=== PATIENT | female | born 1930 | race Caucasian/White ===

== ENCOUNTER 2016-08-25 11:08 | Emergency (ER) | payer MEDICARE ==
[2016-08-25 11:25] VITALS: BP 142/57
--- NOTE | 2016-08-25 12:20 | UC ---
Skin Complaint HPI - HPI Summary HPI Summary: nicked left lower leg with a razor this morning---has had continued oozing from the site - History of Current Complaint Chief Complaint: UCSkin Time Seen by Provider: 08/25/16 12:08 Stated Complaint: LEFT MARTINEZ LACERATION Hx Obtained From: Patient ?: No Onset/Duration: Sudden Onset, Lasting Hours - happened 2 hours ago, Still Present Timing: Constant Current Severity: None Pain Intensity: 0 Location: Discrete - left lower anterior leg Aggravating: Nothing Alleviating: Other - direct pressure Associated Signs & Symptoms: Positive: Negative Related History: Trauma - Allergy/Home Medications Allergies/Adverse Reactions: Allergies Allergy/AdvReac Type Severity Reaction Status Date / Time Penicillins [PCN] Allergy Unknown Verified 08/25/16 11:26 Reaction Details Sulfa Antibiotics Allergy Unknown Verified 08/25/16 11:26 Reaction Details Codeine AdvReac Nausea Verified 08/25/16 11:25 Home Medications: Home Medications Acetaminophen [Acetaminophen Extra Stren] 500 mg PO ONCE PRN 08/25/16 [History Confirmed 08/25/16] Review of Systems Constitutional: Negative Skin: Other - nicked left anterior lower leg with a razor this morning has had continued oozing from the site Eyes: Negative ENT: Negative Respiratory: Negative Cardiovascular: Negative Gastrointestinal: Negative Genitourinary: Negative Motor: Negative Neurovascular: Negative Musculoskeletal: Negative Neurological: Negative Psychological: Negative All Other Systems Reviewed And Are Negative: Yes PMH/Surg Hx/FS Hx/Imm Hx Previously Healthy: Yes - Surgical History Surgical History: Yes Surgery Procedure, Year, and Place: hysterectomy. gallbladder - Family History Known Family History: Positive: None Family History: denies cardio vascular or clotting/bleeding issues in fakmily lineage - Social History Occupation: Retired Lives: With Family Alcohol Use: Occasionally Substance Use Type: None Smoking Status (MU): Never Smoked Tobacco Physical Exam Triage Information Reviewed: Yes Appearance: Well-Appearing, No Pain Distress, Well-Nourished Vital Signs: Initial Vital Signs Temp 97.3 F 08/25/16 11:16 Pulse 75 08/25/16 11:16 Resp 14 08/25/16 11:16 BP 142/57 08/25/16 11:16 Pulse Ox 98 08/25/16 11:16 Vital Signs Reviewed: Yes Eye Exam: Normal Eyes: Positive: Conjunctiva Clear ENT Exam: Normal ENT: Positive: Normal ENT inspection, Hearing grossly normal. Negative: Nasal congestion, Nasal drainage, Trismus, Muffled/hoarse voice Dental Exam: Normal Neck exam: Normal Neck: Positive: Supple, Nontender, No Lymphadenopathy Respiratory Exam: Normal Respiratory: Positive: Chest non-tender, Lungs clear, Normal breath sounds, No respiratory distress, No accessory muscle use Cardiovascular Exam: Normal Cardiovascular: Positive: RRR, No Murmur, Pulses Normal, Brisk Capillary Refill Musculoskeletal Exam: Normal Musculoskeletal: Positive: Strength Intact, ROM Intact, No Edema Neurological Exam: Normal Neurological: Positive: Alert, Muscle Tone Normal Psychological Exam: Normal Psychological: Positive: Normal Response To Family Skin: Positive: Other - silvia on anterior left lower leg Laceration Repair - Laceration Repair 1 Description: Irregular Laceration Size After Repair: Length (cm) - 0.1, Width (mm) - 1, Depth (mm) - 1 Modified For Repair: No Cleansing Completed Via Routine Prep: Yes Irrigation With Pressure Irrigation Device: Yes Re-Evaluation - Re-Evaluation First Eval Change: Improved - surgicell and pressure dressing applied with good relief of bleeding--n/m/c intact after dressing application,additional dressing supplies provided to family Course/Dx - Course Course Of Treatment: keep dressing on for 24 hours, follow BP with PCP - Differential Diagnoses - Skin Complaint Differential Diagnoses: Impetigo, Local Allergic Reaction, Other - small skin avulsion left lower extremity - Diagnoses Provider Diagnoses: hypertension with out previous dx, skin avulsion left lower leg Discharge - Discharge Plan Condition: Stable Disposition: HOME Patient Education Materials: Skin Avulsion (ED), DASH Eating Plan (ED), Hypertension (ED) Referrals: KYRA Baker [Primary Care Provider] - 1 Week
== END 2016-08-25 12:28 | disposition home or self-care (01) ==
LOC: UCCORT 11:08
DX: S81.812A Laceration without foreign body, left lower leg, initial encounter (principal); W45.8XXA Other foreign body or object entering through skin, initial encounter; Y93.9 Activity, unspecified; Y92.9 Unspecified place or not applicable; I10 Essential (primary) hypertension; Z90.49 Acquired absence of other specified parts of digestive tract; Z90.710 Acquired absence of both cervix and uterus
CPT/HCPCS: 99211; G0463

== ENCOUNTER 2017-06-08 12:10 | Emergency (ER) | payer MEDICARE ==
[2017-06-08 14:53] VITALS: BP 126/69
--- NOTE | 2017-06-08 15:12 | UC ---
Shoulder Pain HPI - HPI Summary HPI Summary: Pt. woke up with right shoulder pain. has pain in the front of shoulder and shoots to the elbow. patient is moving the arm without difficulty. there is no brusing or deformity - History of Current Complaint Chief Complaint: UCUpperExtremity Stated Complaint: RT ARM PAIN Time Seen by Provider: 06/08/17 14:58 Hx Obtained From: Patient ?: No Onset/Duration: Sudden Onset, Lasting Hours Timing: Intermittent Episode Lasting Severity Initially: Severe Severity Currently: Severe Location Of Pain: Is Discrete @ - front of shoulder Pain Intensity: 8 Character: Sharp Aggravating Factor(s): Movement, Lifting, Flexion - Allergies/Home Medications Allergies/Adverse Reactions: Allergies Allergy/AdvReac Type Severity Reaction Status Date / Time codeine Allergy Nausea Verified 06/08/17 14:47 Penicillins Allergy Unknown Verified 06/08/17 14:47 Reaction Details Sulfa (Sulfonamide Allergy Unknown Verified 06/08/17 14:47 Antibiotics) Reaction Details PMH/Surg Hx/FS Hx/Imm Hx Previously Healthy: Yes - Surgical History Surgical History: Yes Surgery Procedure, Year, and Place: hysterectomy. gallbladder - Family History Known Family History: Positive: None Family History: denies cardio vascular or clotting/bleeding issues in fakm[place] lineage - Social History Alcohol Use: Weekly Substance Use Type: None Smoking Status (MU): Never Smoked Tobacco Review of Systems Constitutional: Negative Skin: Negative Eyes: Negative ENT: Negative Respiratory: Negative Cardiovascular: Negative Gastrointestinal: Negative Genitourinary: Negative Motor: Negative Neurovascular: Negative Musculoskeletal: Arthralgia, Myalgia Neurological: Negative Psychological: Negative Is Patient Immunocompromised?: No All Other Systems Reviewed And Are Negative: Yes Physical Exam Triage Information Reviewed: Yes Appearance: Well-Appearing, Well-Nourished, Pain Distress Vital Signs: Initial Vital Signs Temp 98.4 F 06/08/17 14:47 Pulse 83 06/08/17 14:47 Resp 16 06/08/17 14:47 BP 126/69 06/08/17 14:47 Pulse Ox 97 06/08/17 14:47 Vital Signs Reviewed: Yes Eye Exam: Normal ENT Exam: Normal Dental Exam: Normal Neck exam: Normal Respiratory Exam: Normal Respiratory: Positive: Chest non-tender, Lungs clear, Normal breath sounds Cardiovascular Exam: Normal Cardiovascular: Positive: RRR, No Murmur, Pulses Normal Abdominal Exam: Normal Abdomen Description: Positive: Nontender, No Organomegaly, Soft Bowel Sounds: Positive: Present Musculoskeletal: Positive: Strength Intact, ROM Intact, Edema @, Other: - pain with elbow felexion in the bicep muscle, pain in bicep tendon groove of the shoulder with INT and EXT rotation, there is no brusing or deformity of the joint, she is moving the arm while talking, pushes herslf out of the chair without difficulty or pain, able to lift arms abover her head as well. Psychological Exam: Normal Shoulder Course/Dx - Course Course Of Treatment: hs obtained, exam performed ,meds reviewed, ROM assessed. sling provided for arm rest, - Differential Dx/Diagnosis Differential Diagnosis/HQI/PQRI: Arthritis, Bursitis, Contusion, Dislocation, Sprain, Strain Provider Diagnoses: muscle strain of right bicep Discharge - Discharge Plan Condition: Stable Disposition: HOME Patient Education Materials: Muscle Strain (ED) Referrals: KYRA Baker [Primary Care Provider] - Additional Instructions: 1. use heating pad to warm the arm, 2. tylenol as needed for pain 3. no heavy lifting until pain subsides, try not to sleep in the right side. 4. If no improvement in the next week follow up with your doctor.
== END 2017-06-08 15:22 | disposition home or self-care (01) ==
LOC: UCCORT 12:10
DX: S46.211A Strain of muscle, fascia and tendon of other parts of biceps, right arm, initial encounter (principal); X58.XXXA Exposure to other specified factors, initial encounter; Y93.9 Activity, unspecified; Y92.9 Unspecified place or not applicable
CPT/HCPCS: 99212; G0463

== ENCOUNTER 2018-03-18 14:39 | Emergency (ER) | payer MEDICARE ==
[2018-03-18 14:49] VITALS: BP 159/73
--- NOTE | 2018-03-18 15:11 | UC ---
General HPI - HPI Summary HPI Summary: pt was pushing her cart and ran it into a box on the floor causing her to fall. pt fell backwards and hit the back of her head on the floor. she denies any LOC , MARIE, neck pain, n/v. pt and son note aside from the back of her head being sore she is fine. no laceration and no use of blood thinners. occured just ship's captain. - History of Current Complaint Chief Complaint: UCHeadInjury Stated Complaint: HEAD INJURY S/P FALL Time Seen by Provider: 03/18/18 15:03 Hx Obtained From: Patient, Family/Coil Builder - son Hx Last Menstrual Period: N/A Onset/Duration: Sudden Onset Pain Intensity: 9 Associated Signs & Symptoms: Negative: Dizziness, Headache, Nausea, Vomiting, Weakness - Allergy/Home Medications Allergies/Adverse Reactions: Allergies Allergy/AdvReac Type Severity Reaction Status Date / Time codeine Allergy Nausea Verified 03/18/18 14:48 Penicillins Allergy Unknown Verified 03/18/18 14:48 Reaction Details Sulfa (Sulfonamide Allergy Unknown Verified 03/18/18 14:48 Antibiotics) Reaction Details Home Medications: Home Medications Losartan TAB* [Cozaar TAB*] 50 mg PO BEDTIME 03/18/18 [History Confirmed ] PMH/Surg Hx/FS Hx/Imm Hx Cardiovascular History: Hypertension - Surgical History Surgical History: Yes Surgery Procedure, Year, and Place: hysterectomy. gallbladder - Family History Known Family History: Positive: None Family History: denies cardio vascular or clotting/bleeding issues in f[place] lineage - Social History Occupation: Retired Alcohol Use: Weekly Substance Use Type: None Smoking Status (MU): Never Smoked Tobacco - Immunization History Vaccination Up to Date: Yes Review of Systems All Other Systems Reviewed And Are Negative: Yes Constitutional: Positive: Negative Skin: Positive: Negative Eyes: Positive: Negative ENT: Positive: Negative Respiratory: Positive: Negative Cardiovascular: Positive: Negative Gastrointestinal: Positive: Negative Genitourinary: Positive: Negative Motor: Positive: Negative Neurovascular: Positive: Negative Musculoskeletal: Positive: Other: - pain to back of head Neurological: Positive: Negative Psychological: Positive: Negative Is Patient Immunocompromised?: No Physical Exam Triage Information Reviewed: Yes Appearance: Well-Appearing Vital Signs: Initial Vital Signs Temp 97.2 F 03/18/18 14:44 Pulse 85 03/18/18 14:44 Resp 19 03/18/18 14:44 BP 159/73 03/18/18 14:44 Pulse Ox 100 03/18/18 14:44 Vital Signs Reviewed: Yes Eyes: Positive: Conjunctiva Clear, Other: - PERRL, EOMI. ENT: Positive: Pharynx normal, TMs normal, Other - hearing aide returned to L ear. Negative: Nasal congestion, Nasal drainage Neck: Positive: Supple, Nontender, No Lymphadenopathy, Other: - c-spine non tender and no deformity. Respiratory: Positive: Chest non-tender, Lungs clear, Normal breath sounds Cardiovascular: Positive: RRR, No Murmur Abdomen Description: Positive: Nontender, No Organomegaly, Soft Bowel Sounds: Positive: Present Musculoskeletal: Positive: Other: - Head: mild swelling and brusing with tenderness to upper occipital area. No break in skin or step off/instability. thoracic and lumbar spine are non tender. rom intact per baseline. extremities atraumatic. Neurological: Positive: Other: - a&o x3. cn 2-12 grossly intact. 5/5 strenght, 1 + reflexes x4. superficial sensation intact x4. slow steady gait which is normal for pt Psychological: Positive: Age Appropriate Behavior Skin Exam: Normal Diagnostics - Radiology No standard instances Radiology Interpretation Completed By: Radiologist - CT Brain=IMPRESSION: 1. NO EVIDENCE FOR ACUTE INTRACRANIAL ABNORMALITY. 2. SMALL HEMATOMA IN THE SCALP ADJACENT TO THE POSTERIOR LEFT PARIETAL BONE. 3. ATROPHY AND MODERATE TO SEVERE CHRONIC SMALL VESSEL ISCHEMIC CHANGES. Course/Dx - Course Course Of Treatment: EXAM IS REASSURING. CT UNREMARKABLE. NEED FOR CLOSE F/U AND RECHECK STRESSED WELL GO TO ER FOR ANY CHANGES/WORSENING. - Diagnoses Provider Diagnosis: Head injury, Scalp contusion Discharge - Sign-Out/Discharge Documenting (check all that apply): Patient Departure All imaging exams completed and their final reports reviewed: Yes - Discharge Plan Condition: Stable Disposition: HOME Patient Education Materials: Head Injury (ED), Scalp Contusion in Adults (ED) Referrals: KYRA Baker [Family Provider] - 5 Days Additional Instructions: GO TO ER FOR ANY CHANGES OR WORSENING. - Billing Disposition and Condition Condition: STABLE Disposition: Home
== END 2018-03-18 16:03 | disposition home or self-care (01) ==
LOC: UCCORT 14:39
DX: S00.03XA Contusion of scalp, initial encounter (principal); W19.XXXA Unspecified fall, initial encounter; Y92.9 Unspecified place or not applicable; Z88.0 Allergy status to penicillin; Z88.1 Allergy status to other antibiotic agents; Z88.5 Allergy status to narcotic agent
CPT/HCPCS: 70450; 99211; G0463

== ENCOUNTER 2018-09-07 21:52 | Emergency (ER) | payer MEDICARE ==
[2018-09-07 22:04] VITALS: BP 138/68
[2018-09-07] MEDS ORDERED: Nitrofurantoin Macrocrystals* 50 MG CAP PO ONE (22:12)
--- NOTE | 2018-09-07 22:16 | ED ---
GI/ HPI - HPI Summary HPI Summary: 87 yr old female with one day of increased frequency of urination and dysuria. She was at a picnic today and she has her urinary symptoms which are moderate. No fever, chills, No vomiting, no back pain. - History of Current Complaint Chief Complaint: UCGU Time Seen by Provider: 09/07/18 22:01 Stated Complaint: URINARY Hx Last Menstrual Period: N/A Pain Intensity: 8 - Allergy/Home Medications Allergies/Adverse Reactions: Allergies Allergy/AdvReac Type Severity Reaction Status Date / Time codeine Allergy Nausea Verified 09/07/18 21:59 Penicillins Allergy Unknown Verified 09/07/18 21:59 Reaction Details Sulfa (Sulfonamide Allergy Unknown Verified 09/07/18 21:59 Antibiotics) Reaction Details PMH/Surg Hx/FS Hx/Imm Hx Endocrine/Hematology History: Reports: Hx Diabetes Cardiovascular History: Reports: Hx Hypertension - Cancer History Cancer Type, Location and Year: cervical cancer - Surgical History Surgery Procedure, Year, and Place: hysterectomy. gallbladder Infectious Disease History: No Infectious Disease History: Denies: Traveled Outside the [place] in Last 30 Days - Family History Known Family History: Positive: None Family History: denies cardio vascular or clotting/bleeding issues in f[place] lineage - Social History Lives: With Family Alcohol Use: None Substance Use Type: Reports: None Smoking Status (MU): Never Smoked Tobacco Review of Systems Constitutional: Negative Negative: Vomiting, Nausea Positive: dysuria, frequency, urgency All Other Systems Reviewed And Are Negative: Yes Physical Exam Triage Information Reviewed: Yes Vital Signs On Initial Exam: Initial Vitals Temp Pulse Resp BP Pulse Ox 97.8 F 89 16 138/68 100 09/07/18 22:00 09/07/18 22:00 09/07/18 22:00 09/07/18 22:00 09/07/18 22:00 Vital Signs Reviewed: Yes Appearance: Positive: Well-Appearing, No Pain Distress Skin: Positive: Warm, Skin Color Reflects Adequate Perfusion Head/Face: Positive: Normal Head/Face Inspection Eyes: Positive: EOMI, ENEIDA ENT: Positive: Normal ENT inspection Neck: Positive: Nontender Respiratory/Lung Sounds: Positive: Clear to Auscultation, Breath Sounds Present Cardiovascular: Positive: RRR. Negative: Murmur Abdomen Description: Negative: CVA Tenderness (R), CVA Tenderness (L), Distended Musculoskeletal: Positive: Strength/ROM Intact Neurological: Positive: Sensory/Motor Intact Psychiatric: Positive: Normal - Jewett Coma Scale Best Eye Response: 4 - Spontaneous Best Motor Response: 6 - Obeys Commands Best Verbal Response: 5 - Oriented Coma Scale Total: 15 Diagnostics - Vital Signs Vital Signs Temp Pulse Resp BP Pulse Ox 09/07/18 22:00 97.8 F 89 16 138/68 100 - Laboratory Lab Results: Lab Results 09/07/18 Range/Units 22:07 POC Urine Color Other POC Urine Clarity Cloudy POC Urine pH 5.5 (5-9) POC Ur Specif [place] 1.015 (1.010-1.030) POC Urine Protein 2+ A (Negative) POC Ur Glucose (UA) Negative (Negative) POC Urine Ketones Negative (Negative) POC Urine Blood 2+ A (Negative) POC Urine Nitrite Positive A (Negative) POC Urine Bilirubin Negative (Negative) POC Urine Urobilinogen 0.2 (Negative) POC U Leukocyte Esteras 3+ A (Negative) Lab Statement: Any lab studies that have been ordered have been reviewed, and results considered in the medical decision making process. GIGU Course/Dx - Course Course Of Treatment: 87 yr old with UTI. Rx macrobid. The patient is receiving her first dose here with crackers. - Diagnoses Provider Diagnoses: UTI (urinary tract infection), Hypertension Discharge - Sign-Out/Discharge Documenting (check all that apply): Patient Departure All imaging exams completed and their final reports reviewed: No Studies - Discharge Plan Condition: Good Disposition: HOME Prescriptions: Nitrofurantoin Monohyd/M-Cryst [Macrobid 100 mg Capsule] 100 mg PO BID #10 cap Patient Education Materials: Urinary Tract Infection in Women (ED), Hypertension (ED) Referrals: KYRA Baker [Primary Care Provider] - 2 Days - Billing Disposition and Condition Condition: GOOD Disposition: Home
--- NOTE | 2018-09-09 09:24 | ED ---
Progress - Progress Note Progress Note: Nursing asked me to send a different medication in for the UTI since the patient has no improvement in symptoms on the macrobid. She has allergies to penicillins, sulfa drugs. Will prescribe cipro for her 500mg BID for 5 days. Course/Dx - Course Course Of Treatment: 87 yr old with UTI. Rx macrobid. The patient is receiving her first dose here with crackers. - Diagnoses Provider Diagnoses: UTI (urinary tract infection), Hypertension Discharge - Sign-Out/Discharge Documenting (check all that apply): Patient Departure All imaging exams completed and their final reports reviewed: No Studies - Discharge Plan Condition: Good Disposition: HOME Prescriptions: Ciprofloxacin TAB* [Cipro 500 MG TAB*] 500 mg PO BID #10 tab Patient Education Materials: Urinary Tract Infection in Women (ED), Hypertension (ED) Referrals: KYRA Baker [Primary Care Provider] - 2 Days - Billing Disposition and Condition Condition: GOOD Disposition: Home
== END 2018-09-07 22:22 | disposition home or self-care (01) ==
LOC: UCCORT 21:52
DX: N39.0 Urinary tract infection, site not specified (principal); I10 Essential (primary) hypertension; E11.9 Type 2 diabetes mellitus without complications; Z88.5 Allergy status to narcotic agent; Z88.0 Allergy status to penicillin; Z88.2 Allergy status to sulfonamides
CPT/HCPCS: 81003; 87077; 87086; 87186; 99212; A9270-GY; G0463

== ENCOUNTER 2018-11-26 11:51 | Emergency (ER) | payer MEDICARE ==
[2018-11-26 12:43] VITALS: BP 175/96
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
== END 2018-11-26 13:21 | disposition home or self-care (01) ==
LOC: UCCORT 11:51
DX: S81.802A Unspecified open wound, left lower leg, initial encounter (principal); X58.XXXA Exposure to other specified factors, initial encounter; Y92.9 Unspecified place or not applicable; E11.9 Type 2 diabetes mellitus without complications; I10 Essential (primary) hypertension; Z85.41 Personal history of malignant neoplasm of cervix uteri
CPT/HCPCS: 99211; G0463